=== PATIENT | female | born 1980 | race Caucasian/White ===

== ENCOUNTER 2016-06-29 18:31 | Emergency (ER) | payer OTHER ==
[2016-06-29] MEDS ORDERED: ORPHENADRINE CITRATE 60 MG/2ML IM ONE (19:13)
[2016-06-29] MEDS ORDERED: KETOROLAC TROMETHAMINE 60 MG/2 ML VIAL IM ONE (19:13)
--- NOTE | 2016-06-29 19:15 | ED Physician Documentation ---
Low Back Pain - HISTORIAN Historian: patient - HPI Stated Complaint: low back pain Chief Complaint: Low Back Pain/ Injury History: back pain Onset: days ago (1) Duration: continues in ED Recent Injury: No Associated Symptoms: denies: fever Further Comments: yes (36 yo female presents with low back pain. Denies any new injury. Reports chronic mid-back pain from compression fx at T12 and T1. Today reports pain going down her back into her right leg. No bowel/bladder dysfunction. No numbness/tingling.) - ROS CONST: no problems - PAST HX Past History: back pain, compression fracture(s). denies: arthritis Allergies/Adverse Reactions: Allergies Allergy/AdvReac Type Severity Reaction Status Date / Time Penicillins Allergy Mild Verified 06/29/16 18:49 Home Medications: Ambulatory Orders Medication Instructions Recorded Cyclobenzaprine HCl [Flexeril] 10 mg PO TID PRN #20 tablet 06/29/16 FLUoxetine HCL [Prozac] 10 mg PO QD 06/29/16 Lamotrigine [Lamictal] 25 mg PO 06/29/16 predniSONE [Deltasone] 20 mg PO BID #10 tablet 06/29/16 traZODone HCL [Desyrel] 50 mg PO HS 06/29/16 - SOCIAL HX Smoking History: non-smoker Alcohol Use: none - FAMILY HX Family History: none - VITAL SIGNS Vital Signs: Vital Signs Temp Pulse Resp BP Pulse Ox 98.5 F 81 16 113/75 98 06/29/16 18:46 06/29/16 18:46 06/29/16 18:46 06/29/16 18:46 06/29/16 18:46 - REVIEWED ASSESSMENTS Nursing Assessment Reviewed: Yes Vitals Reviewed: Yes ED Results Lab/Radiology - Orders Orders: ED Orders Category Date Time Status Ketorolac Tromethamine [Toradol] Med 06/29/16 19:13 Once 60 mg IM NOW ONE Orphenadrine Citrate [Norflex] Med 06/29/16 19:13 Once 60 mg IM NOW ONE Low Back Pain/Injury - Physical Exam General Appearance: no acute distress, alert EENT: eye inspection normal, JACKIE Neck: non-tender, painless ROM Resp/CVS: chest non-tender Back: other (tednerness to palpation of lower T-spine into L-spine, no bony tenderness, all soft tissue) Straight Leg Raising: Negative Left, Negative Right Neuro/Psych: oriented x3 Discharge Clincal Impression: Sciatica Qualifiers: Laterality: right Qualified Code(s): M54.31 - Sciatica, right side Home Medications: Ambulatory Orders Cyclobenzaprine HCl [Flexeril] 10 mg PO TID PRN #20 tablet 06/29/16 FLUoxetine HCL [Prozac] 10 mg PO QD 06/29/16 Lamotrigine [Lamictal] 25 mg PO 06/29/16 predniSONE [Deltasone] 20 mg PO BID #10 tablet 06/29/16 traZODone HCL [Desyrel] 50 mg PO HS 06/29/16 Condition: Good Disposition: 01 HOME, SELF-CARE Decision to Admit: NO Decision Time: 19:45
[2016-06-29] MEDS ORDERED: predniSONE 10 MG TABLET PO ONE (19:31)
[2016-06-29] MEDS ORDERED: predniSONE 20 MG TABLET PO ONE (19:32)
[2016-06-29 19:38] VITALS: BP 118/72
== END 2016-06-29 19:35 | disposition home or self-care (01) ==
LOC: ED 18:31
DX: M54.31 Sciatica, right side (principal)
CPT/HCPCS: J1885; J2360; J7512; 96372; 99283

== ENCOUNTER 2016-09-08 19:30 | Emergency (ER) | payer OTHER ==
[2016-09-08 20:59] LABS: BASOPHILS % 0.2 (0.0-1.5); EOSINOPHILS % 1.9 % (0.0-6.8); LYMPHOCYTES # 2.3 # k/uL (0.6-4.0); MEAN CORPUSCULAR HEMOGLOBIN 31.5 pg (28.0-34.0); MONOCYTES # 0.5 # k/uL (0.0-0.9); MONOCYTES % 4.5 % (0.0-11.0); NEUTROPHILS # 7.1 # k/uL (1.4-7.7)
[2016-09-08 21:13] LABS: eGFR (African) > 60; eGFR (Non-African) > 60
[2016-09-08] MEDS ORDERED: POTASSIUM CHLORIDE 20 MEQ TABLET.ER PO ONE (21:26)
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
--- NOTE | 2016-09-08 22:44 | Diagnostic Imaging Report ---
DEMETRIA SIBLEY (VANIA) - ER~ [facility] [address] [address] ~ ~ ~ ~ Report Submission Date: Sep 08, 2016 9:17:10 PM CDT Patient ~ Study Name: TEAGAN PAUL ~ Date: Sep 08, 2016 8:52:33 PM CDT ~ Modality Type: CT\SR Gender: F ~ Description: CT ABD & PELVIS W/ CON : 84 ~ Institution: [facility] Physician: DEMETRIA SIBLEY) - ER ~ ~ ~ ~ CT abdomen and pelvis with intravenous contrast History: Pelvic pain Technique: Images through the abdomen and pelvis were obtained following intravenous contrast administration. Findings: The lung bases are clear. There is a 2.7 cm enhancing lesion in the left hepatic lobe. The lesion contains a central scar and the appearance suggests focal nodular hyperplasia. The liver is otherwise normal. There is no biliary duct dilatation. The portal vein enhances normally. The gallbladder, spleen, pancreas, kidneys and adrenal glands are normal. There is no hydronephrosis, hydroureter, free intraperitoneal air or fluid. There is no bowel obstruction. The appendix is normal. The uterus is grossly normal. The aorta enhances normally. Impression: 1. Focal nodular hyperplasia in the left hepatic lobe. 2. Otherwise normal. ~ Electronically signed on Sep 08, 2016 9:17:10 PM CDT by: Mike Bustos Addendum: Chronic appearing L1 vertebral body compression fracture is present. Approximately 50% loss of vertebral body height is noted at the anterior cortex. Addendum electronically signed by Mike Bustos on September 08, 2016 10:06:25 PM CDT MTDD
--- NOTE | 2016-09-08 22:46 | Diagnostic Imaging Report ---
DEMETRIA SIBLEY (VANIA) - ER~ [facility] [address] [facility].[address] [address] ~ ~ ~ ~ Report Submission Date: Sep 08, 2016 10:08:58 PM CDT Patient ~ Study Name: TEAGAN PAUL ~ Date: Sep 08, 2016 9:49:29 PM CDT ~ Modality Type: CT\SR Gender: F ~ Description: CT L-SPINE W/O CONTRAS : 84 ~ Institution: [facility] Physician: DEMETRIA SIBLEY) - ER ~ ~ ~ ~ Computed tomography of the lumbar spine without contrast History: Incontinence and numbness. History of spine fracture Findings: Transverse lumbar spine sections are obtained without contrast from which multiplanar reformatted images were generated. And old T12 superior endplate invagination fracture is present. An old L1 vertebra burst fracture is present with mild retropulsion but no central canal stenosis. There is 8 mm loss of anterior vertebral body height. The L1/L2, L2/L3, and L3/L4 intervertebral disk levels are normal. At L4/L5 there is moderate diffuse disc bulging and posterior central disc protrusion with moderate spinal canal narrowing. This does not fulfill criteria for central canal stenosis. At L5/S1 there is mild diffuse disc bulging. There is no evidence of disc extrusion, central canal stenosis, or foraminal stenosis. Impression: 1. Old T12 and L1 fracture deformities. 2. L4/L5 spondylosis with moderate spinal canal narrowing. 3. Mild L5/S1 spondylosis. ~ Electronically signed on Sep 08, 2016 10:08:58 PM CDT by: Wu CASTANEDA
[2016-09-09 04:46] VITALS: BP 114/71
== END 2016-09-08 23:30 | disposition short-term general hospital (02) ==
LOC: ED 19:30
DX: N39.498 Other specified urinary incontinence (principal)
CPT/HCPCS: 72131; 74177; 80053; 81002; 81025; 85025; 99284; A9270; Q9966; S1016

== ENCOUNTER 2016-11-03 20:59 | Emergency (ER) | payer OTHER ==
[2016-11-03 21:58] LABS: BASOPHILS % 0.2 (0.0-1.5); EOSINOPHILS % 1.5 % (0.0-6.8); MEAN CORPUSCULAR HEMOGLOBIN 32.5 pg (28.0-34.0); MEAN CORPUSCULAR VOLUME 97.7 fl (80.0-100.0); MONOCYTES % 3.6 % (0.0-11.0); NEUTROPHILS # 9.8 # k/uL (1.4-7.7)
[2016-11-03] MEDS ORDERED: 0.9 % SODIUM CHLORIDE 1,000 ML IV SCH (22:00)
[2016-11-03] MEDS ORDERED: 0.9 % SODIUM CHLORIDE 1,000 ML IV ONE (22:03)
[2016-11-03] MEDS ORDERED: MECLIZINE HCL 25 MG TABLET PO ONE ×2 (22:03→22:05)
[2016-11-03 22:11] LABS: eGFR (African) > 60; eGFR (Non-African) > 60
[2016-11-04] MEDS ORDERED: cefTRIAXone SODIUM ADVANTAGE 1 GM in NORMAL SALINE ADD-VANTAGE 50 ML IV ONE (00:54)
[2016-11-04] MEDS ORDERED: cefTRIAXone SODIUM 1 GM VIAL ONE (00:54)
[2016-11-04] MEDS ORDERED: 0.9 % SODIUM CHLORIDE 50 ML IV ONE (00:55)
--- NOTE | 2016-11-04 01:02 | Diagnostic Imaging Report ---
TANIA REDDY~ [facility] [address] [facility] [address] [place], [place]. [address] ~ ~ ~ ~ Report Submission Date: November 04, 2016 12:36:08 AM CDT Patient ~ Study Name: TEAGAN PAUL ~ Date: November 03, 2016 10:37:15 PM CDT ~ Modality Type: CT\SR Gender: F ~ Description: CT ABD & PELVIS W/O CO : 84 ~ Institution: [facility] Physician: TANIA REDDY ~ ~ ~ ~ CT abdomen and pelvis without contrast Date of study: CLINICAL HISTORY:~ LEUKOCYTOSIS, PT STATES FEELING TIRED FOR 1 WEEK, NO IV CONTRAST GIVEN FOR EXAM (Hx) / LEUKOCYTOSIS (DICOM Hx) TECHNIQUE: 5 mm contiguous axial images of the abdomen and pelvis non contrast.~ FINDINGS: There is minimal right basilar atelectasis. No lesion is seen in the liver , spleen ,adrenal glands, pancreas and gallbladder. The kidneys are normal. An umbilical hernia containing only fat. The appendix is not identified. There is no pelvic mass. No free fluid is seen. Small inguinal lymph nodes are present bilaterally. There is an old burst fracture of L1 with sclerosis of the burst fracture.. There is an opaque pill at the ge junction IMPRESSION: No acute abdomen or pelvis pathology Old burst fracture with kyphotic deformity of the L1 level The appendix is not identified with certainty on this study. Minimal right basilar atelectasis ~ Electronically signed on November 04, 2016 12:36:08 AM CDT by: Francois CASTANEDA
--- NOTE | 2016-11-04 01:05 | Diagnostic Imaging Report ---
TANIA REDDY~ [facility] [address] [facility]. [address] [place] [address]. [address] ~ ~ ~ ~ Report Submission Date: November 03, 2016 11:42:02 PM CDT Patient ~ Study Name: TEAGAN PAUL ~ Date: November 03, 2016 10:32:25 PM CDT ~ Modality Type: CT\SR Gender: F ~ Description: CT MAXILLOFACIAL W/O D : 84 ~ Institution: [facility] Physician: TANIA REDDY ~ ~ ~ ~ CT maxillofacial without contrast History: Leukocytosis Findings: Transverse maxillofacial sections are obtained without contrast revealing no significant sinus mucosal thickening or fluid level. Bilateral Rosalind bullosa and clear ostiomeatal units are noted. Multiple dental caries are observed. Right mandibular and bilateral maxillary molar periapical abscesses are present. The parotid and submandibular glands are unremarkable. Mild tonsillar and adenoid hypertrophy is observed. Shotty bilateral cervical adenopathy is present. The orbits are unremarkable. Periapical lucencies suggest abscess formation. Visualized mastoid air cells are clear. Laryngeal polyps or adherent mucous are observed bilaterally. Impression: 1. No significant sinusitis. 2. Advanced dental disease with caries and periapical abscesses. 3. Tonsillar and abnormal hypertrophy. 4. Shotty bilateral cervical adenopathy. 5. Laryngeal mucus versus polyps. ~ Electronically signed on November 03, 2016 11:42:02 PM CDT by: Wu CASTANEDA
--- NOTE | 2016-11-04 01:06 | Diagnostic Imaging Report ---
TANIA REDDY~ [facility] [address] [address] ~ ~ ~ ~ Report Submission Date: November 03, 2016 11:56:55 PM CDT Patient ~ Study Name: TEAGAN PAUL ~ Date: November 03, 2016 11:33:03 PM CDT ~ Modality Type: CR Gender: F ~ Description: CHEST : 84 ~ Institution: [facility] Physician: TANIA REDDY ~ ~ ~ ~ Portable chest History: Leukocytosis Findings: The lungs are clear without pneumonia or pleural effusion. Heart size and pulmonary vascularity are normal. Osseous structures are unremarkable. Impression: Normal. ~ Electronically signed on November 03, 2016 11:56:55 PM CDT by: Wu CASTANEDA
--- NOTE | 2016-11-04 05:46 | ED Physician Documentation ---
Allergy Symptoms - HISTORIAN Historian: patient - HPI Stated Complaint: dizzy, fatique, diarrhea, hemorhoid Chief Complaint: Dizziness Additional Information: fatigued, diarrhea Onset: days ago (7) Duration: continues in ED Associated Symptoms: none Swelling: none Shortness of Breath: none Trouble Swallowing/ Speaking: none Identified Cause: no Context: Food Exposure: none Where: home Context: Medication Exposure: none Context: Other Exposure: denies: bee sting, wasp sting, ant bite, spider bite, poison chelsey, poison oak, infectious illness, soap, detergent Further Comments: no - ROS EYES/ENT: none CVS/RESP: none GI/: other (diarrhea) CONST: none MS/SKIN/LYMPH: none NEURO/PSYCH: other (dizziness) - PAST HX Prior Allergic Reaction: none Medical History: other (anxiety, depression) Immunizations: referred to PCP Allergies/Adverse Reactions: Allergies Allergy/AdvReac Type Severity Reaction Status Date / Time Penicillins Allergy Mild Verified 11/03/16 21:22 Home Medications: Ambulatory Orders Medication Instructions Recorded FLUoxetine HCL [Prozac] 50 mg PO QD 06/29/16 Lamotrigine [Lamictal] 125 mg PO D 06/29/16 traZODone HCL [Desyrel] 50 mg PO HS 06/29/16 - SOCIAL HX Smoking History: cigarettes Alcohol Use: none Drug Use: none - FAMILY HX Family History: No - VITAL SIGNS Vital Signs: Vital Signs Temp Pulse Resp BP Pulse Ox 99 F 84 16 111/67 94 11/03/16 20:59 11/03/16 21:10 11/03/16 20:59 11/03/16 21:10 11/03/16 20:59 - REVIEWED ASSESSMENTS Nursing Assessment Reviewed: Yes Vitals Reviewed: Yes Progress - Results/Orders Results/Orders: ct facial bones, ct abdomen/pelvis, cxr ordered, cbc, cmp, ua ordered - Progress Progress: pt given meclizine, 1 liter ns and 1 gram rocephin ivpb with resolution of symptoms Critical Care Note - Critical Care Note Total Time (mins): 0 ED Results Lab/Radiology - Lab Results Lab Results: Lab Results 11/03/16 11/03/16 21:52 21:51 WBC 12.80 K/ul H K/ul (4.00-12.00) RBC 3.69 M/ul L M/ul (3.90-5.20) Hgb 12.0 g/dL g/dL (12.0-16.0) Hct 36.0 % % (34.5-46.5) MCV 97.7 fl fl (80.0-100.0) MCH 32.5 pg pg (28.0-34.0) MCHC 33.3 g/dL g/dL (30.0-36.0) RDW 13.2 % % (11.3-14.3) Plt Count 271 K/mm3 K/mm3 (130-400) Neut % (Auto) 76.1 % % (39.0-79.0) Lymph % (Auto) 18.0 % % (16.0-50.0) Becker % (Auto) 3.6 % % (0.0-11.0) Eos % (Auto) 1.5 % % (0.0-6.8) Baso % (Auto) 0.2 (0.0-1.5) Neut # 9.8 # k/uL H # k/uL (1.4-7.7) Lymph # 2.3 # k/uL # k/uL (0.6-4.0) Becker # 0.5 # k/uL # k/uL (0.0-0.9) Eos # 0.2 # k/uL # k/uL (0.0-0.6) Baso # 0.0 # k/uL # k/uL (0.0-0.5) Reactive Lymphs % 0.6 % % (0.0-5.0) Reactive Lymphs # 0.1 # k/uL # k/uL (0.0-0.8) Sodium 140 mmol/L mmol/L (136-145) Potassium 3.8 mmol/L mmol/L (3.5-5.0) Chloride 101 mmol/L mmol/L (98-110) Carbon Dioxide 30 mmol/L mmol/L (20-32) BUN 13 mg/dL mg/dL (10-26) Creatinine 0.6 mg/dL mg/dL (0.4-1.5) Estimated Creat Clear 161 Est GFR ( Amer) > 60 (60 - ) Est GFR (Non-Af Amer) > 60 (60 - ) Glucose 91 mg/dL mg/dL (70-99) Calcium 9.2 mg/dL mg/dL (8.5-10.5) Total Bilirubin 0.3 mg/dL mg/dL (0.2-1.2) AST 12 U/L U/L (0-41) ALT 10 U/L U/L (0-45) Alkaline Phosphatase 49 U/L U/L (46-116) Total Protein 6.2 g/dL g/dL (6.0-8.5) Albumin 4.1 g/dL g/dL (3.0-5.5) - Radiology Radiology Impressions: ct facial bones shows widespread dental disease with cervical lymph nodes - Orders Orders: ED Orders Category Date Time Status Orthostatics 1T Care 11/03/16 21:10 Active Saline Lock [Remove IV/Saline Lock] 1T Care 11/03/16 21:47 Active CHEST 1 VIEW [RAD] Routine Exams 11/03/[address] ABD & PELVIS W/O CON Stat Exams 11/03/[address] MAXILLOFACIAL W/O DYE Routine Exams 11/03/16 Completed CBC/PLATELET/DIFF Routine Lab 11/03/16 21:52 Completed CMP Routine Lab 11/03/16 21:51 Completed URINALYSIS Routine Lab 11/03/16 21:47 Ordered 0.9 % Sodium Chloride [Normal Saline] 1,000 ml Med 11/03/16 22:00 Ordered IV .Q1H 0.9 % Sodium Chloride [Sodium Chloride] 50 ml Med 11/04/16 00:55 Discontinued IV .STK-MED Meclizine HCl [Antivert] Med 11/03/16 22:03 Discontinued 25 mg PO .STK-MED ONE Meclizine HCl [Antivert] Med 11/03/16 22:05 Discontinued 25 mg PO NOW ONE cefTRIAXone SODIUM ADVANTAGE [Rocephin Advantage] 1 gm Med 11/04/16 00:54 Discontinued Normal Saline Add-Ashuelot [Sodium Chloride] 50 ml IV NOW cefTRIAXone SODIUM [Rocephin] Med 11/04/16 00:54 Discontinued 1 gm .ROUTE .STK-MED ONE Allergy Symptons Exam - EXAM General Appearance: no acute distress, alert HEENT: ENT nml inspection, pharynx nml, voice nml Skin: no rash, nml color Extremities: non-tender, nml ROM, no edema Neck: nml inspection Respiratory: no resp. distress, breath sounds nml. No: respiratory distress CVS: reg rate & rhythm, heart sounds normal Abdomen: non-tender, no organomegaly Neuro: oriented X3, CN's nml as tested, motor nml, sensation nml, mood/affect nml, cognition normal Discharge Clincal Impression: Dental infection Referrals: Hilario Ferreira MD [Primary Care Provider] - 2 Days Home Medications: Ambulatory Orders FLUoxetine HCL [Prozac] 50 mg PO QD 06/29/16 Lamotrigine [Lamictal] 125 mg PO D 06/29/16 traZODone HCL [Desyrel] 50 mg PO HS 06/29/16 Comments: home with script for keflex Condition: Stable Disposition: 01 HOME, SELF-CARE Decision to Admit: NO Decision Time: 02:00
[2016-11-04 05:54] LABS: APPEARANCE,URINE CLOUDY (CLEAR); COLOR,URINE YELLOW (YELLOW); OCCULT BLOOD,URINE 1+ (NEGATIVE); PH URINE 5.5 (5.0 - 8.0); UROBILINOGEN URINE 0.2 Eu (0.2-1.0)
[2016-11-04 07:08] VITALS: BP 111/61
== END 2016-11-04 02:10 | disposition home or self-care (01) ==
LOC: ED 20:59
DX: K02.9 Dental caries, unspecified (principal)
CPT/HCPCS: 70486; 71010; 74176; 80053; 81002; 85025; J0696; J7030; 96365; 99283; S1016

== ENCOUNTER 2017-01-14 02:21 | Emergency (ER) | payer OTHER ==
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
[2017-01-14] MEDS ORDERED: DOXYCYCLINE MONOHYDRATE 100 MG CAPSULE PO ONE (02:58)
[2017-01-14] MEDS: DOXYCYCLINE MONOHYDRATE 100 MG CAPSULE PO SCH (03:01)
[2017-01-14 03:36] VITALS: BP 110/61
== END 2017-01-14 03:32 | disposition home or self-care (01) ==
LOC: ED 02:21
DX: W55.01XA Bitten by cat, initial encounter (principal); Y93.9 Activity, unspecified; Y99.9 Unspecified external cause status
CPT/HCPCS: 99283

== ENCOUNTER 2017-04-27 13:53 | Emergency (ER) | payer OTHER ==
[2017-04-27 14:14] VITALS: BP 98/63
--- NOTE | 2017-04-27 14:48 | ED Physician Documentation ---
Skin Rash - HISTORIAN Historian: patient - HPI Stated Complaint: raised rash upper abd around to back Chief Complaint: Skin Rash Front/Back of Body, Lg (Blaine): 1 - rash Onset: days ago (4) Timing: still present Duration: persistent since Location: trunk Quality: itchy Identified Cause?: No Context: Medication Exposure: none Context: Food Exposure: none Further Comments: no - ROS CONST: none CVS/RESP: none EYES/ENT: none GI/: none MS/SKIN/LYMPH: none NEURO/PSYCH: none - PAST HX Past History: other (psychiatric problems) Other History: none Immunizations: referred to PCP Allergies/Adverse Reactions: Allergies Allergy/AdvReac Type Severity Reaction Status Date / Time No Known Allergies Allergy Verified 04/27/17 14:23 Home Medications: Ambulatory Orders Medication Instructions Recorded FLUoxetine HCL [Prozac] 50 mg PO QD 06/29/16 Lamotrigine [Lamictal] 125 mg PO D 06/29/16 traZODone HCL [Desyrel] 50 mg PO HS 06/29/16 - SOCIAL HX Smoking History: cigarettes Alcohol Use: none Drug Use: none - FAMILY HX Family History: none - VITAL SIGNS Vital Signs: Vital Signs Temp Pulse Resp BP Pulse Ox 98.8 F 72 20 98/63 97 04/27/17 13:53 04/27/17 13:53 04/27/17 13:53 04/27/17 13:53 04/27/17 13:53 - REVIEWED ASSESSMENTS Nursing Assessment Reviewed: Yes Vitals Reviewed: Yes Progress - Results/Orders Results/Orders: no testing ordered - Progress Progress: pt. stable entire time in er Critical Care Note - Critical Care Note Total Time (mins): 0 ED Results Lab/Radiology - Lab Results Lab Results: none ordered - Radiology Radiology Impressions: none ordered Skin Rash Physical Exam - EXAM General Appearance: alert, moderate distress Skin: warm,dry, other (vessicular rash below breasts and around to side) Character: patchy, vesicular Symptoms: tenderness Extremities: non-tender, nml ROM EENT: eyes nml inspection, lips nml, gums nml, pharynx nml Neck: trachea midline, no swelling Respiratory: no resp distress, chest non-tender CVS: reg. rate & rhythm, heart sounds nml Abdomen: non-tender, no organomegaly, nml bowel sounds Neuro/Psych: oriented x3, CN's nml as tested, motor nml, sensation nml, mood/ affect nml Discharge Clincal Impression: Shingles rash Qualifiers: Herpes zoster complications: without complications Qualified Code(s): B02.9 - Zoster without complications Referrals: Hilario Ferreira MD [Primary Care Provider] - 2 Days Comments: Discharged in stable condition with script for Zovirax 400 mg 2 pills 5x/day for 7 days and Prednisone taper 60 mg - 0 mg over 6 days. Condition: Good Disposition: 01 HOME, SELF-CARE Decision to Admit: NO Decision Time: 14:47
== END 2017-04-27 14:53 | disposition home or self-care (01) ==
LOC: ED 13:53
DX: B02.9 Zoster without complications (principal)
CPT/HCPCS: 99283

== ENCOUNTER 2017-12-27 11:14 | Outpatient (CLI) | payer OTHER | END 2017-12-27 14:12 | LOC: LAB 11:14 | PROVIDERS: ATTEND Physician Assistant | DX: Z51.81 Encounter for therapeutic drug level monitoring (principal); Z13.6 Encounter for screening for cardiovascular disorders | CPT/HCPCS: 36415; 80061; 80178 ==

== ENCOUNTER 2018-02-04 04:20 | Emergency (ER) | payer OTHER ==
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
[2018-02-04 06:13] VITALS: BP 100/62
[2018-02-04 07:22] LABS: APPEARANCE,URINE CLEAR (CLEAR); COLOR,URINE YELLOW (YELLOW); OCCULT BLOOD,URINE 2+ (NEGATIVE); PH URINE 5.5 (5.0 - 8.0); UROBILINOGEN URINE 0.2 Eu (0.2-1.0)
[2018-02-04 07:25] LABS: CANNABINOIDS NEGATIVE ng/mL (< 50); METHYLENEDIOXYMETHAMPHETAMINE NEGATIVE ng/mL (<500)
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
== END 2018-02-04 06:03 | disposition home or self-care (01) ==
LOC: ED 04:20
DX: R07.81 Pleurodynia (principal); Y04.0XXA Assault by unarmed brawl or fight, initial encounter; Y92.9 Unspecified place or not applicable; Y93.9 Activity, unspecified; Y99.9 Unspecified external cause status
CPT/HCPCS: 71100; 71110; 80377; 81002; 99283; G0481